=== PATIENT | female | born 1990 | race Caucasian/White ===

== ENCOUNTER 2016-08-25 12:23 | Emergency (ER) | payer OTHER ==
[~2016-08-25] VITALS: Ht 170.2 cm; Wt 68.0 kg
[~2016-08-25 12:23] MED LIST: DEPO-ESTRAD5 MG/1 ML; NORCO 5-325 TA1 EACH PO
[2016-08-25] MEDS ORDERED: VENTOLIN HFA 1818 GM INH (12:42)
[2016-08-25] MEDS ORDERED: IBUPROFEN 800800 M1 PO (13:26)
[2016-08-25 14:02] VITALS: BP 152/100
== END 2016-08-25 14:05 | disposition home or self-care (01) ==
LOC: ER 12:23
DX: S93.401A Sprain of unspecified ligament of right ankle, initial encounter (principal); X50.1XXA Overexertion from prolonged static or awkward postures, initial encounter; Y93.89 Activity, other specified; Y92.89 Other specified places as the place of occurrence of the external cause; Y99.8 Other external cause status